=== PATIENT | male | born 1950 | race Caucasian/White ===

== ENCOUNTER 2016-11-14 09:50 | Day surgery (SDC) | payer MEDICARE, MEDICAID ==
[~2016-11-14] VITALS: Ht 170.2 cm; Wt 96.0 kg
[~2016-11-14 09:50] MED LIST: 0.9% Sodium Chloride 1,000 ML IV SCH; AMLO5TAB2 PO; ASPI-973 PO; CALC500T9 PO; DOCU250C2 PO; GABA-500 PO; OMEG500C PO; PSYL798P2 PO; SIMV40TA5 PO; Sodium Chloride LOK Flush 10 mL Syringe IV PRN; TRAM200T2 PO; fentaNYL-PF 50 mCg/mL 2 mL Inj IVPUSH PRN
[2016-11-14] MEDS ORDERED: fentaNYL-PF 50 mCg/mL 2 mL Inj IVPUSH ONE (09:51)
[2016-11-14 10:12] VITALS: BP 137/70; PULSE 74; RESP 16; O2SAT 97
[2016-11-14] MEDS ORDERED: LISI10TA PO (10:12)
[2016-11-14] MEDS ORDERED: MIRT15TA6 PO (10:12)
[2016-11-14] MEDS ORDERED: DULO60CA61 PO (10:12)
[2016-11-14] MEDS ORDERED: METF500T4 PO (10:12)
[2016-11-14 11:14] VITALS: BP 139/76; PULSE 77; RESP 16; O2SAT 94
[2016-11-14 11:24] VITALS: BP 118/71; PULSE 68; RESP 17; O2SAT 94
--- NOTE | 2016-11-15 06:27 | ENDO ---
[address] [address] ENDOSCOPY PROCEDURE PATIENT: TAI VILLALOBOS : 1950 MR#: [id number] ADMIT: 11/14/2016 JOB ID: [id number] DATE OF SERVICE: 11/14/2016 PROCEDURE PERFORMED: Colonoscopy. INDICATIONS: Screening. ASA CLASSIFICATION: The patient's ASA classification is II. MALLAMPATI SCORE: Mallampati score was 2. MEDICATIONS: 1. Versed 3 mg. 2. Fentanyl 75 mcg. INSTRUMENT USED: [id number]-H190AL. PREPARATION QUALITY: Fair. PROCEDURE DETAILS: After informed consent was obtained, the patient was brought into the GI suite, where he was placed on oxygen via nasal cannula and monitored with continuous pulse oximeter, telemetry, and blood pressure monitoring. A time-out was performed. Then, he was placed in the left lateral decubitus position and medications were administered for sedation. Digital rectal exam was performed which was unremarkable. The colonoscope was then inserted into the rectum and advanced under direct visualization to the cecum, which was identified by the presence of the ileocecal valve and appendiceal orifice. Once the cecum was reached, the colonoscope was withdrawn back into the rectum, as the mucosa and lumen were examined. In the rectum, retroflexion was performed. Following retroflexion, remaining air in the rectum was suctioned, and procedure was completed. FINDINGS: 1. In the cecum there was an approximately 8 mm flat polyp that was lifted using normal saline. Polyp had the appearance consistent with a serrated adenoma. Following lifting of the polyp, the polyp was then removed in a single piece with a hot snare. Just adjacent to this was an approximately 4 mm polyp that was removed with a cold snare. With the larger polyp following removal there was some mild oozing of blood and therefore, two hemoclips were placed for hemostasis. 2. In the ascending colon, there was an approximately 6-7 mm sessile polyp that was removed with a hot snare. 3. In the transverse colon, there was an approximately 7-8 mm flat polyp that was lifted using normal saline and then removed with a hot snare. The resulting mucosal defect was approximated with placement of three hemoclips. 4. In the distal rectum, there was an approximately 6 mm polyp that was sessile that was removed with a hot snare. The resulting mucosal defect was approximated with the placement of one hemoclip. 5. Scattered diverticula were seen throughout the left side of the colon. IMPRESSION: 1. Two cecal polyps. 2. Ascending polyp. 3. Transverse polyp. 4. Rectal polyp. RECOMMENDATIONS: 1. Avoid NSAIDs and anticoagulants for 72 hours. 2. Repeat colonoscopy in a year. COMPLICATIONS: None. ESTIMATED BLOOD LOSS: Less than 5 mL.
--- NOTE | 2016-11-17 14:43 | PATH ---
SURGICAL PATHOLOGY Attending Physician:Kirit Beth CASE STATUS: Signed Out PATIENT NAME: TAI VILLALOBOS PID: [id number] : 1950 DATE COLLECTED:11/14/2016 22:38 SPECIMEN: 1: Colon, Biopsy 2: Colon, Biopsy 3: Colon, Biopsy 4: Rectum, Biopsy CLINICAL HISTORY: 1). CECAL POLYPS X2 2). ASCENDING POLYP X1 3). TRANSVERSE POLYP X1 4). RECTAL POLYP X1 FINAL DIAGNOSIS: 1.CECAL POLYPS: TUBULAR ADENOMA, 1. SESSILE SERRATED ADENOMA, 1. 2.ASCENDING COLON POLYP: SESSILE SERRATED ADENOMA. 3.TRANSVERSE COLON POLYP: SESSILE SERRATED ADENOMA. 4.RECTAL POLYP: HYPERPLASTIC POLYP. ICD10 D12.0 D12.2 D12.3 K62.1 GROSS DESCRIPTION: The specimen is received in four formalin filled containers labeled with the patient's name. 1). The specimen is sublabeled "cecal polyp" and consists of 2 portions of tissue which aggregate to 0.6 x 0.6 x 0.5 CM. The smallest piece is entirely submitted. The largest piece is bisected and entirely submitted in the same cassette. 2). The specimen is sublabeled "ascending polyp" and consists of 3 portions of tissue which aggregate to 0.3 x 0.2 x 0.1 CM. The specimen is entirely submitted in cassette 2A. 3). The specimen is sublabeled "transverse polyp" and consists of a 0.9 x 0.8 x 0.5 CM portion of tissue. The specimen is trisected and totally submitted in cassettes 3A. 4). The specimen is sublabeled "rectal polyp" and consists of a 0.5 x 0.2 x 0.2 CM portion of tissue which is entirely submitted in cassette 4A. 11/14/2016 DAC MICRO DESCRIPTION: See diagnosis. ICD-9 CODES: CPT CODES: 1: 72757 2: 97041 3: 95932 4: 23952 Electronically Signed Out Sofia Araya MD [facility] [place] [address] Technical component performed at [facility], [facility] [address], [place], [address]
== END 2016-11-14 23:59 | disposition home or self-care (01) ==
LOC: END 09:50 → EDUNIT# 10:30 → END 23:59
PROVIDERS: ATTEND Internal Medicine Gastroenterology
DX: Z12.11 Encounter for screening for malignant neoplasm of colon (principal); D12.0 Benign neoplasm of cecum; D12.2 Benign neoplasm of ascending colon; D12.3 Benign neoplasm of transverse colon; K62.1 Rectal polyp; F33.41 Major depressive disorder, recurrent, in partial remission; E11.9 Type 2 diabetes mellitus without complications; I10 Essential (primary) hypertension; E78.5 Hyperlipidemia, unspecified; Z87.891 Personal history of nicotine dependence; K57.30 Diverticulosis of large intestine without perforation or abscess without bleeding
CPT/HCPCS: 45381; 45385; 99153; G0500; J2250; J3010; J7030

== ENCOUNTER 2016-11-20 22:13 | Observation (INO) | payer MEDICARE, MEDICAID ==
[~2016-11-20] VITALS: Ht 170.2 cm; Wt 99.2 kg
[~2016-11-20 22:13] MED LIST changes: -0.9% Sodium Chloride 1,000 ML IV SCH; +DULO60CA61 PO; +LISI10TA PO; +METF500T4 PO; +MIRT15TA6 PO; -Sodium Chloride LOK Flush 10 mL Syringe IV PRN; -TRAM200T2 PO; -fentaNYL-PF 50 mCg/mL 2 mL Inj IVPUSH PRN
[2016-11-20 22:17] VITALS: BP 131/79; PULSE 105; RESP 16; O2SAT 95
[2016-11-20] MEDS ORDERED: 0.9% Sodium Chloride 1,000 ML IV ONE (22:26)
--- NOTE | 2016-11-20 22:26 | ED.REPORT ---
HPI-GI Bleed Date of Service Nov 20, 2016 ED Provider: Johnathan Gastelum DO A 66 year old male with a history of diabetes and hyperlipidemia presents to the ED complaining of rectal bleeding. The pt had a colonoscopy six days ago with five polyps removed and clips placed. He was doing well following this and had a normal bowel movement this afternoon. After dinner at 21:00 this evening, the pt experienced abdominal pain and rectal bleeding. The blood was initially bright red but is now maroon, and the pt feels like he is only passing blood and not stool. The pt estimates that he has had eight such episodes tonight. The pt takes one 81 mg aspirin per day but denies alcohol use or overuse of medications such as Motrin. Nursing Notes Stated Complaint: BLOODY STOOL Chief Complaint: Male Abdominal Pain Nursing Notes Reviewed: Yes Allergies: Coded Allergies: No Known Allergies (Unverified , 11/14/16) Scheduled Amlodipine (Amlodipine) 5 Mg Tablet 5 MG PO DAILY Aspirin (Aspirin) 81 Mg Tablet 81 MG PO DAILY Duloxetine (Duloxetine) 60 Mg Capsule. 60 MG PO DAILY Gabapentin (Gabapentin) 100 Mg Capsule 100 MG PO BID Lisinopril (Lisinopril) 10 Mg Tablet 10 MG PO DAILY Metformin (Metformin) 500 Mg Tablet 1,000 MG PO BID Mirtazapine (Mirtazapine) 15 Mg Tablet 15 MG PO HS Simvastatin (Simvastatin) 40 Mg Tablet 40 MG PO HS Scheduled PRN Calcium Carbonate (Tums) 500 Mg Tab.chew 300 MG PO PRN PRN PRN For Pain Docusate Sodium (Docusate Sodium) 250 Mg Capsule 100 MG PO BID PRN PRN For Constipation Miscellaneous Medications [place]-3 Fatty Acids (Fish Oil) 500 Mg Capsule. 1,000 MG PO Psyllium Husk (with Sugar) (Metamucil Powder) 538 Gm Powder 538 GM PO General Time Seen by Provider: 22:26 Chief Complaint Chief Complaint: Other (Rectal bleeding) Hx Obtained From: Patient Arrived By: Walk-in Onset Occurred: 1 - 4 hours ago Symptom Duration: Intermittent Recent Healthcare: Recent doctor visit Similar Sx Previous: No Past Medical History Past Medical History depression Reports: Diabetes mellitus, Hyperlipidemia Past Surgical History shoulder inguinal hernia repair Smoking History Unknown if Ever Smoker Social History Alcohol Use: Denies alcohol use (quit 30 years ago) Other Social History: Good social support, Ambulatory Status Independent Review of Systems Review of Systems Note: rectal bleeding Constitutional: Denies: Fever Respiratory: Denies: Non-productive cough, Shortness of breath Cardiovascular: Denies: Chest pain GI: Reports: Abdominal pain Skin: Denies Rash Complete sys rev & neg: except as marked. Physical Exam Initial Vital Signs Vital Signs (First) Date Time Temp Pulse Resp B/P Pulse Ox O2 Delivery O2 Flow Rate FiO2 11/20/16 22:17 36.5 105 16 131/79 95 Room Air Initial VS: Reviewed General/Constitutional: Awake, Alert Respiratory / Chest: Atraumatic, Breath sounds NL, Breath sounds = bilat, No respiratory distress Cardiovascular: Heart rate NL, Regular rhythm, Heart sounds NL Abdomen: Atraumatic, Soft diffuse lower abdominal tenderness Rectum: exam deferred Head / Eyes: Atraumatic, Normocephalic, PERRL, EOMI ENT: Atraumatic, Airway patent, Mucous membranes moist Skin Skin: Atraumatic, Color NL, No rash, Warm, Dry Neurologic: Oriented X3, Speech NL, No motor deficits, No sensory deficits Neck: Atraumatic, No meningismus, Full range of motion Back: Atraumatic, Full range of motion Upper Extremity / MS: Atraumatic, Full range of motion Lower Extremity / Pelvis / MS: Atraumatic, Full range of motion Psychiatric: Affect NL, Mood NL Interpretation & Diagnostics Lab Results Interpretation Result Diagram: 11/21/16 0100 11/20/16 2320 Test 11/20/16 23:20 11/21/16 01:00 White Blood Count 10.9th/mm3 (3.8-10.1) Red Blood Count 4.17mil/mm3 (4.40-5.80) Mean Corpuscular Volume 92.8fL (81-100) Mean Corpuscular Hemoglobin 31.2pg (27.0-35.0) Mean Corpuscular Hemoglobin Concent 33.6% (32.0-37.0) Red Cell Distribution Width 12.5% (12.3-15.4) Platelet Count 299bil/L (150-400) Neutrophils (%) (Auto) 61.9% (40-74) Lymphocytes (%) (Auto) 25.8% (14-46) Monocytes (%) (Auto) 8.8% (4-12) Eosinophils (%) (Auto) 2.6% (0-5) Basophils (%) (Auto) 0.6% (0-3) Band Neutrophils % 0% (1-5) Prothrombin Time 10.3sec (8.1-12.5) Prothromb Time International Ratio 0.96ratio Sodium Level 141mEq/L (134-144) Potassium Level 4.4mEq/L (3.5-5.2) Chloride Level 102mEq/L (97-108) Carbon Dioxide Level 23mmol/L (18-29) Blood Urea Nitrogen 19mg/dL (8-27) Creatinine 0.91mg/dL (0.76-1.27) Estimat Glomerular Filtration Rate 89mL/min (>59) Glucose Level 120mg/dL (60-99) Calcium Level 9.0mg/dL (8.5-10.1) Magnesium Level 1.9mg/dL (1.6-2.6) Total Bilirubin 0.3mg/dL (0.0-1.2) Aspartate Amino Transf (AST/SGOT) 69U/L (0-50) Alanine Aminotransferase (ALT/SGPT) 44U/L (0-44) Alkaline Phosphatase 74U/L (25-160) Troponin T 0.010ug/L (0.0-0.011) Total Protein 6.9g/dL (6.4-8.4) Albumin 4.1g/dL (3.4-5.0) Hemoglobin 11.5g/dL (13.8-17.2) Hematocrit 35.9% (41.0-50.0) Pulse Oximetry Interpretation Pulse Oximetry Interpretation: 95% on room air Pulse Oximetry: Pulse Ox normal ECG Interpretation ECG Interpretation: sinus tachycardia with a rate of 102 otherwise normal Time: 22:45 Interpreted by: ED physician CBC Interpretation Hgb low (there was a drop in his hemoglobin.), Hgb normal Cardiac / Vascular Interp Cardiac markers normal Re-Eval/Medical Decision Med Decision/Clinical Course 66-year-old male presents with multiple bloody bowel movements. He is status post colonoscopy with snare polypectomy and metal clip placement. This was 5 days ago I believe. He has had 3 bloody bowel movements today. This prompted the ED evaluation. No presyncopal symptoms. No chest pain or shortness of breath. He is not on anticoagulants. On examination he was in no acute distress and he did not have pallor. He was orthostatic hypotensive and tachycardic. He had several bloody bowel movements with a total volume of roughly 350 mL. He was fluid resuscitated with normal saline and his vitals normalized. His H&H shows that it is trending down however his hemoglobin is still greater than 11 after the second liter and him passing 3 more bloody bowel movements. I have consulted with gastroenterology. The plan will be admitted to the ICU. Serial H&H. GoLYTELY prep. Plan for colonoscopy in the morning. If any change in his condition or stability then gastroenterology will be consulted for further recommendations. Source of Hx: Old records Re-Evaluation/Progress : Time of Eval: 00:01 Patient Status: Condition improved Re-Evaluation/Progress Note: Pt rechecked, who is stable. The diagnosis and plan for discharge is discussed. The pt understands and agrees with the plan. All questions are addressed at this time. Consultation #1: Referral / Consult Name: Rashel Lopez MD Call Returned at: 00:02 Layout Mechanic: Agrees with eval, Agrees with plan Note: Consulted with Dr. Lopez, gastroenterology, regarding pt's case. Dr. Lopez recommends bowel prep and admission. He also recommends no CT scan. Consultation #2: Referral / Consult Name: Brenda Alvarez DO Consulted With: Hospitalist Call Returned at: 00:42 Layout Mechanic: Agrees with eval, Agrees with plan, Accepts admit Note: Spoke with Dr. Alvarez, hospitalist, regarding pt's case. Dr. Alvarez agrees with the plan and agrees to admit the pt. Counseled Regarding: Diagnosis, Lab results, Need for admission Discharge & Departure Impression: Primary Impression: Lower GI bleed Disposition: ADMITTED TO HOSPITAL Discharge Condition All VS Reviewed: Yes Condition: Stable Referrals: Hayden Borrero MD (PCP) Crit Care Except Billable Proc Time Spent: 75-104 minutes Services Performed: Patient management by me, Time spent at bedside, Reviewing test results, Reviewing imaging, Discussing patient care, Documentation in record (fluid resuscitation. Gastroenterology consultation. Preparation for transfusion.) Scribe Attestation Portions of this note were transcribed by Saumya Villagran. I, Dr. Gastelum personally performed the history, physical exam and medical decision-making; I reviewed and confirmed the accuracy of the information in the transcribed note. Signed by: John Menard, 11/21/16 and 0045. copies to: Hayden Borrero MD, Todd P DO Nov 20, 2016 22:26 SAUMYA VILLAGRAN Nov 20, 2016 22:36
[2016-11-20] MEDS ORDERED: Pantoprazole 4 mg/mL 10 mL Inj IVPUSH ONE (22:30)
[2016-11-20] MEDS ORDERED: Pantoprazole Inj 80 MG, Pharmacy To Mix 1 EA in 0.9% Sodium Chloride 80 ML IV ONE ×2 (22:30)
[2016-11-20 23:35] LABS: BASOPHILS % (AUTO) 0.6 % (0-3); EOSINOPHILS % (AUTO) 2.6 % (0-5); MONOCYTES % (AUTO) 8.8 % (4-12); Mean Corpuscular Hemoglobin 31.2 pg (27.0-35.0); Mean Corpuscular Volume 92.8 fL (81-100); NEUTROPHILS % (AUTO) 61.9 % (40-74); Platelet Count 299 bil/L (150-400)
[2016-11-20 23:49] LABS: INR 0.96 ratio
[2016-11-21] VITALS (12 sets, daily range): BP systolic 86–130; BP diastolic 48–79; PULSE 82–118; RESP 16–24; O2SAT 92–100
[2016-11-21] MEDS ORDERED: PEG/Electrolytes 4,000 mL Solution PO ONE (00:10)
[2016-11-21 00:17] LABS: Magnesium 1.9 mg/dL (1.6-2.6); TROPONIN T 0.01 ug/L (0.0-0.011)
[2016-11-21] MEDS ORDERED: 0.9% Sodium Chloride 1,000 ML IV SCH (01:49)
[2016-11-21] MEDS ORDERED: Alum-Mag Hydrox-Simeth 30 mL Suspension PO PRN (01:50)
[2016-11-21] MEDS ORDERED: Ondansetron 2 mg/mL 2 mL Inj IVPUSH PRN ×2 (01:50→02:55)
[2016-11-21] MEDS ORDERED: 0.9% Sodium Chloride 1,000 ML IV ONE ×2 (01:55→10:53)
--- NOTE | 2016-11-21 01:57 | PCM.HPMED ---
Subjective Date of Service Nov 21, 2016 Primary Provider: Admitting Physician: Brenda Alvarez DO Primary Care Physician: Hayden Borrero MD Attending Physician: Brenda Alvarez DO Admit Status: From the Emergency Department Chief Complaint: Bright red blood per rectum History of Present Illness: This is a 66-year-old male with past medical history significant for diabetes mellitus type II, hyperlipidemia, and hypertension who presents for bright red blood per rectum. Patient states that on 11/14/2016 he had a routine colonoscopy at which time 5 polyps were removed and clips were placed. Since that time he had been doing well with regular bowel movements until 9 PM this evening when he began to have rectal bleeding. The patient states that the blood was bright red but later became a darker, maroon color. The patient states he has had about 10 episodes of passing blood per rectum. Associated symptoms include some left lower quadrant abdominal pain that is described as achy and constant as well as a feeling of lightheadedness. He denies any NSAID use. He does take an aspirin 81 mg per day. He denies any history of GI bleeding. In the emergency department initial vital signs were temperature 36.5 Celsius, pulse 105, respiratory rate 16, blood pressure 131/79, satting at 95% on room air. WBC 10.9, platelets 299. Initial hemoglobin 13.0 with repeat hemoglobin 11.5. Initial hematocrit 38.7 with repeat hematocrit 35.9. CMP showed a glucose of 120, ALT 44, AST 69. Troponin 0.010. Magnesium 1.9. Urinalysis is pending. The emergency room physician contacted Dr. Lopez of gastroenterology who will see patient in the morning. Dr. Lopez also recommended bowel prep. Review of Systems: A comprehensive review of systems was conducted with the patient and found to be negative except as above in the History of Present Illness. Allergies Coded Allergies: No Known Allergies (Unverified , 11/14/16) Home Medications amlodipine 5 mg tablet take 1 tablet by oral route every day aspirin 81 mg tablet,delayed release take 1 tablet by oral route every day atorvastatin 20 mg tablet Take 1/2 po QxoP3zol then 1 po QPM blood-glucose meter USE to check BS daily duloxetine 60 mg capsule,delayed release take 1 capsule po QAM gabapentin 800 mg tablet take 1 tablet by oral route 3 times every day lisinopril 10 mg tablet take 1 tablet by oral route every day metformin 500 mg tablet take 1 tablet by oral route 2 times every day with morning and evening meals mirtazapine 15 mg tablet Take 2 po QHSX 4wks then 1 po QHSX 4wks then stop PMH Diabetes mellitus type II Hypertension Hyperlipidemia Depression Vitamin D deficiency Surgical History Left inguinal hernia repair 2013 Shoulder surgery 1996 Sinus surgery in 2002 Family History Father of heart disease. Mother of emphysema. Social History Hx Alcohol Use: No (QUIT 30 YEARS AGO) Hx Substance Use: No Hx Tobacco Use: No (quit in 2008) Smoking Status: Unknown if Ever Smoker Exam Vital Signs Vital Sign - Last Date Time Temp Pulse Resp B/P Pulse Ox O2 Delivery O2 Flow Rate FiO2 11/21/16 00:15 118 92/52 97 Room Air 11/20/16 22:17 36.5 16 Intake and Output 11/20/16 11/20/16 11/21/16 Cumulative From/Thru 15:00 23:00 07:00 11/20/16 22:17 - 11/20/16 23:21 Intake Total 999 ml 999 ml Balance 999 ml 999 ml Intake IV Total 999 ml 999 ml Exam General: No acute distress, somewhat pale, well-developed, well-nourished, appropriately interactive HEENT: Normocephalic, atraumatic. External ears without defect. Pupils equal, round, and reactive to light and accommodation. Anicteric sclerae, moist conjunctivae, and no lid lag. Oropharynx free of erythema and cobble stoning with moist mucosa. Neck: Supple with full range of motion. No jugular venous distension. No bruits. No lymphadenopathy or thyromegaly. Cardiovascular: Regular rate and rhythm with no murmurs, rubs, or gallops appreciated Pulmonary: Clear to auscultation bilaterally with no crackles, wheezes, or rhonchi. Normal respiratory effort with no use of accessory muscles. Abdomen: Bowel tones present. Soft, mild tenderness to palpation of left lower quadrant with no rebound or guarding, nondistended. No hepatosplenomegaly or masses appreciated. Extremities: No clubbing, cyanosis, edema, or lymphadenopathy appreciated. Skin: Normal temperature, turgor, and texture; no rash, ulcers, or subcutaneous nodules appreciated. Neurological: Cranial nerves grossly intact. Normal muscle strength, tone, and bulk. Reflexes, coordination, and sensory function within normal limits. No known gait impairment. Psychiatric: Normal mood and affect. Alert and oriented to person, place, and time. Lab and Diagnostics Result Diagram: 11/21/16 0100 11/20/16 3870 Assessment & Plan This is a 66-year-old male who has a history significant for hypertension, hyperlipidemia, and diabetes mellitus type II who presents today for bright red blood per rectum starting this evening at 9 PM after routine colonoscopy on 07/2016. Bright red blood per rectum, present on admission, ongoing: -Likely secondary to clip displacement from polyp removal.. -Dr. Lopez of gastroenterology has been contacted and will see patient in morning. -2 units PRBCs on hold. -We will check hemoglobin and hematocrit every 2 hours x3 then will check serial less frequent if H&H stabilizes -Patient will be cc status with frequent vital checks. -Patient has bowel prep. Hypertension, present on admission: -We will hold antihypertensive medications Diabetes mellitus type II, present on admission, ongoing: -Admit glucose was 120. Hemoglobin A1c on 10/06/2016 was 10.1 -We will add medium dose correctional Humalog. -Continue metformin. Hyperlipidemia, present on admission, ongoing: -Continue atorvastatin. Depression, present on admission: -Continue duloxetine, mirtazapine. Hold DVT prophylaxis due to GI bleed. Patient is admitted under inpatient status with expected length of stay greater than 2 midnights due to severity of presenting symptoms, risk of adverse event, and complexity of treatment plan. Pain Evaluation: Adequate Pain Control Resuscitation Status: CPR: Attempt Resuscitation Attending Statement The patient was seen and examined together with house staff on 11/21/2016 and I agree with the history, exam and plan as outlined in the note above. Harry Adames DO Nov 21, 2016 01:57 Brenda Alvarez DO Nov 21, 2016 02:51
[2016-11-21] MEDS ORDERED: Glucose 40% Oral Gel 15 Gm Tube PO PRN (02:25)
[2016-11-21] MEDS ORDERED: Dextrose 10% 250 ML IV PRN (02:30)
[2016-11-21] MEDS: 0.9% Sodium Chloride 1,000 ML IV SCH ×4 (02:55→23:33)
[2016-11-21] MEDS: Acetaminophen IV 1,000 MG in IV Premix 1 EACH IV PRN ×2 (03:07→12:28)
[2016-11-21] MEDS ORDERED: Pantoprazole Inj 80 MG in 0.9% Sodium Chloride 80 ML IV SCH (03:45)
[2016-11-21 04:09] LABS: APPEARANCE,URINE CLEAR (CLEAR,HAZY); COLOR,URINE DARK YELLOW (YELLOW); OCCULT BLOOD,URINE NEGATIVE (NEGATIVE); UROBILINOGEN,URINE NORMAL (NORMAL)
--- NOTE | 2016-11-21 04:25 | NUR ---
Admit Note Admitted to CCU 2019 from ER at 0205. Transfered independently from [facility] to bed. Protonix gtt continued at 10ml/h from ER. NS started at 100ml/h. Increased to 500ml/h after getting up to bedside commode with associated drop in blood pressure and MAP <65. Stooled x2 for total 500ml maroon stool with clots. States generally feeling terrible. Zofran given x1 for complaints of nausea. Iv Tylenol given once for complaint of severe headache with resolution. Spouse asleep at bedside after admit.
[2016-11-21] MEDS: Insulin LISPRO 300 Unit/3 mL Inj SUBQ SCH ×4 (08:31→22:00)
[2016-11-21] MEDS ORDERED: Pantoprazole Inj 80 MG in 0.9% Sodium Chloride-Pha MIX 80 ML IV SCH (09:00)
--- NOTE | 2016-11-21 09:09 | NUR ---
Syncopy..Pt got up to commode on own and passed more b Addendum: 11/21/16 at 0920 by MAURA FAGAN RN Above note not completed.. Pt passed more bright red stool with clots and preceded to have a syncopal episode requiring 4 staff lift to return to bed. Pt was extremely pale, diaphoretic and minimally responsive. Placed in trendelenberg and IVF increased to bolus. Pt returned to baseline within 5 minutes and B/P was noted to be 103/55. Pt is having 5/10 abdominal pain noted with colyte prep and states he just feels terrible due to the pain and is unable to take any further prep. Dr Qureshi updated.
--- NOTE | 2016-11-21 09:25 | NUR ---
Social Work: Initial Assessment D: Per EMR review, pt is a 66 year old male admitted for Lower GI bleed. Pt is [facility] wier with [facility] supplement; pt has no LTC insurance or VA benefits. PCP is Richard Borrero MD. NOK Is Karon Ni, , . Advanced direcitve info provided to pt and . No readmit score entered. STRIP MACHINE OPERATOR met with pt and at bedside. Sw role explained. See initial assessment. Pt lives in a single story home in [place]; pt states that this is a sober living home. Pt's lives nearby in [place]. Pt uses a cane for ambulation and has a ramp to enter his home. Pt states that he has never had HH or skilled rehab. 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 Pt and anticipate pt will discharge home via POV once medically stable A: Pt who is I at baseline. P: Evolving; STRIP MACHINE OPERATOR to continue to follow pt's clinical course. Anticipate pt to discharge home via POV once medically stable. MOON Kearns Addendum: 11/21/16 at 1007 by DELFINO HARRIS Amended: Links added.
[2016-11-21] MEDS ORDERED: fentaNYL-PF 50 mCg/mL 2 mL Inj ONE (09:50)
--- NOTE | 2016-11-21 11:03 | PCM.PNMED ---
Subjective Date of Service Nov 21, 2016 Subjective Mr. Ni was slightly somnolent and tremulous upon initial examination this AM, he had recently had a near syncopal episode while on the commode prior to a bloody BM. He otherwise denies chest pain and SOB. He continues to report some mild RUQ abdominal pain and loose BMs. Comprehensive ROS negative except as listed above. Exam Vital Signs Vital Sign - Last Date Time Temp Pulse Resp B/P Pulse Ox O2 Delivery O2 Flow Rate FiO2 11/21/16 10:29 89 16 86/48 11/21/16 10:14 36.4 11/21/16 07:35 100 11/21/16 07:35 Supplement Oxygen Intake and Output 11/20/16 11/20/16 11/21/16 Cumulative From/Thru 15:00 23:00 07:00 11/20/16 22:17 - 11/21/16 05:42 Intake Total 3848 ml 3848 ml Output Total 1300 ml 1300 ml Balance 2548 ml 2548 ml Intake Oral 1800 ml 1800 ml IV Total 2048 ml 2048 ml Output Urine Total 50 ml 50 ml Stool Total 1250 ml 1250 ml Exam Gen: A/O x3 mildly somnolent and tremulous man in mild acute distress secondary to anxiety and fatigue Neck: Supple, non tender, Full ROM, no JVD HEENT: PERRL, EOMI, no scleral icterus, no conjunctival pallor CV: RRR, no murmurs rubs or gallops Resp: Lungs CTA BL, no wheezing rales or rhonchi Abd: Mild tenderness to palpation in LLQ, no guarding or rebound, no organomegaly Extr: No cyanosis clubbing or edema Neuro: CN 2-12 grossly intact, no focal neurologic deficit Psych: Fully oriented slightly anxious gentleman IVs and Medications IV Fluids NS @ 100 ml/hr 100 ml delivered with IV meds Medications Reviewed: Medications were reviewed in detail Lab and Diagnostics Item Value Date Time Hemoglobin 8.8 g/dL L 11/21/16719 Hematocrit 27.4 % L 11/21/16719 Result Diagram: 11/21/16 0900 11/20/16 4190 Assessment & Plan This is a 66-year-old male who has a history significant for hypertension, hyperlipidemia, and diabetes mellitus type II who presents today for bright red blood per rectum starting this evening at 9 PM after routine colonoscopy on 07/2016. Patient has been taken to endoscopy for colonoscopic interrogation which revealed an active cecal bleed which was subsequently cauterized. GI recommends transfusing an additional unit of blood, maintaining the protonix drip, and placing the patient on a clear liquid diet with further tracking of H/ H over the evening. Bright red blood per rectum, present on admission, ongoing: -Likely secondary to clip displacement from polyp removal.. -Dr. Lopez will perform colonoscopy . -2 units PRBCs on hold. -We will check hemoglobin and hematocrit every 2 hours x3 then will check serial less frequent if H&H stabilizes -Patient will be cc status with frequent vital checks. -As above patient had active cecal bleed which was cauterized -Clear liquid diet advancing as tolerated tomorrow Hypertension, present on admission: -We will hold antihypertensive medications Diabetes mellitus type II, present on admission, ongoing: -Admit glucose was 120. Hemoglobin A1c on 10/06/2016 was 10.1 -We will add medium dose correctional Humalog. -Will transition back to home dosing once PO intake re-established -Continue metformin. Hyperlipidemia, present on admission, ongoing: -Continue atorvastatin. Depression, present on admission: -Continue duloxetine, mirtazapine. Hold DVT prophylaxis due to GI bleed. Disposition: Patient will be observed for a further 24 hours to ensure that his H/H do not continue to precipitously drop, anticipate DC home tomorrow. Pain Evaluation: Adequate Pain Control GI Prophylaxis: Proton Pump Inhibitor Resuscitation Status: CPR: Attempt Resuscitation Attending Statement The patient was seen and examined together with Dr. Aguilar on 11/21/16 and I agree with the history, exam and plan as outlined in the note above. Ryley Aguilar DO Nov 21, 2016 10:38 Marisa Ortiz DO Nov 23, 2016 18:29
[2016-11-21] MEDS ORDERED: Phenylephrine/NS-PF 100 mCg/mL 5 mL Syringe IVPUSH ONE (13:17)
[2016-11-21] MEDS ORDERED: EPINEPHrine 0.1 mg/mL 10 mL Syringe ONE (13:17)
[2016-11-21] MEDS ORDERED: Propofol 10,000 mCg/mL 20 mL Inj ONE (13:17)
[2016-11-21] MEDS ORDERED: Ketamine 10 mg/mL 20 mL Inj ONE (13:17)
[2016-11-21] MEDS ORDERED: GABA800T2 PO (14:26)
[2016-11-21] MEDS ORDERED: METF1000 PO (14:28)
[2016-11-21] MEDS ORDERED: MULT1CAP33 PO (14:28)
[2016-11-21] MEDS ORDERED: CYAN50002 SL (14:28)
[2016-11-21] MEDS ORDERED: CHOL500011 PO (14:28)
--- NOTE | 2016-11-21 18:00 | NUR ---
Endo.. Pt taken to endoscopy for lower GI scope. Was given 2 units RBC during procedure and completed these without reactions. Returned to CCU at 1130 in stable condition. VSS remained stable and pt was able to be up in the chair. Postural VS done prior to transferring to the chair and these remained stable. Dr Qureshi updated and allowed pt to be on telemetry to amb to BR. He denies any dizziness and states he feels so much better. Is voiding large amts of clear yellow urine. here and updated. Noted to find her letting the pt drink her strawberry milkshake. Reiterated the importance of maintaining his clear liquid diet.
[2016-11-22 00:16] VITALS: BP 140/67; PULSE 96; RESP 20; O2SAT 96
[2016-11-22 03:33] VITALS: BP 136/59; PULSE 81; RESP 22; O2SAT 97
[2016-11-22 03:54] LABS: BASOPHILS % (AUTO) 0.4 % (0-3); EOSINOPHILS % (AUTO) 3.3 % (0-5); MONOCYTES % (AUTO) 8.1 % (4-12); Mean Corpuscular Hemoglobin 29.9 pg (27.0-35.0); Mean Corpuscular Volume 90.7 fL (81-100); NEUTROPHILS % (AUTO) 53.3 % (40-74); Platelet Count 188 bil/L (150-400)
[2016-11-22 04:15] LABS: INR 1.25 ratio
[2016-11-22 04:25] LABS: Magnesium 1.9 mg/dL (1.6-2.6); Phosphorus 2.4 mg/dL (2.5-4.9)
--- NOTE | 2016-11-22 05:18 | ENDO ---
[address] [address] ENDOSCOPY PROCEDURE PATIENT: TAI VILLALOBOS : 1950 MR#: [id number] ADMIT: 11/21/2016 JOB ID: [id number] DATE: PROCEDURE: Colonoscopy. INDICATION: Rectal bleeding. The patient is a 66-year-old gentleman who underwent a colonoscopy for screening back on November 14, 2016, and yesterday evening, approximately 8 o'clock, began having bright red blood per rectum. He presented to the emergency department, where he was noted to have a normal hemoglobin and hematocrit. However, was slightly tachycardic. However, by approximately 8 o'clock this morning, his hemoglobin had dropped significantly. MEDICATIONS: Please see Dr. Kenny Mares's anesthesia report for details regarding ASA classification, Mallampati score, and medications. INSTRUMENT USED: PCF-H180AL. PREPARATION QUALITY: Fair. PROCEDURE DETAILS: After informed consent was obtained, the patient was brought into the GI suite, where he was placed on oxygen via nasal cannula, and monitored with continuous pulse oximeter, telemetry, and blood pressure monitoring. A time-out was performed. Then he was placed in a left lateral decubitus position and medications were administered for sedation. INCOMPLETE DICTATION: Dictation ends here.
--- NOTE | 2016-11-22 05:38 | ENDO ---
[address] [address] ENDOSCOPY PROCEDURE PATIENT: TAI VILLALOBOS : 1950 MR#: [id number] ADMIT: 11/21/2016 JOB ID: [id number] DATE OF SERVICE: 11/21/2016 PROCEDURE PERFORMED: Colonoscopy. INDICATION: Rectal bleeding. The patient is a 66-year-old gentleman who underwent a screening colonoscopy on November 14, 2016, and had several polyps removed that required saline lift and then hot snare polypectomy, followed by hemoclip placement. He was apparently well until yesterday evening at approximately 8 o'clock when he began having painless rectal bleeding. He presented to the emergency department, where he was noted to be slightly tachycardiac. However, with a normal hemoglobin and hematocrit. He was admitted and over the course of his hospital stay has had decreasing hemoglobin and hematocrit with ongoing bright red blood per rectum. Therefore, colonoscopy is being performed today. ANESTHESIA: Please see Dr. Kenny Mares's anesthesia report for details regarding sedation. INSTRUMENT USED: PCF-H180AL. PREPARATION QUALITY: Fair. PROCEDURE DETAILS: After informed consent was obtained, the patient was brought into the GI suite, where he was placed on oxygen via nasal cannula and monitored with continuous pulse oximeter, telemetry and blood pressure monitoring. A time-out was performed. Then, he was placed in the left lateral decubitus position and medications were administered for sedation. Digital rectal exam was performed which revealed bright red blood per rectum, as well as dark maroon clot. The colonoscope was then inserted into the rectum and advanced under direct visualization to the cecum, which was identified by the presence of the ileocecal valve and appendiceal orifice. In the periappendiceal area there was blood pulsating from a visible vessel. The visible vessel appeared to be in an ulcer base. Next, using an injection needle, injected the visible vessel, as well as the surrounding mucosa, with epinephrine 1:10,000 dilution. Following this, there was blanching of surrounding mucosa, as well as there was no further bleeding from the visible vessel. Next, I elected to place three hemoclips to approximate the ulcer margins. The site was then observed for several minutes. Irrigation was performed of the area. No further bleeding was seen. Next, the colonoscope was withdrawn slowly as I examined the mucosa. In the transverse colon I did see two hemoclips that were placed at a polypectomy site from the patient's last colonoscopy. There was no bleeding at this site. The site was irrigated. However, previously, we had placed three hemoclips. Only two were present. Another hemoclip was seen floating in the area. A few scattered diverticula were seen in the left side of the colon. In the distal rectum there was one hemoclip that was previously placed which was still in place. No bleeding was seen from this site. The site was copiously irrigated with water. There was old clot seen throughout the colon that we attempted to suction, some of which we were able to and others were too large to come through the suction channel. Retroflexion was performed in the rectum which revealed the hemoclip in the distal rectum but otherwise unremarkable view. IMPRESSION: 1. Ulcer with visible vessel in the periappendiceal area treated with a combination of epinephrine and hemoclips. 2. Two hemoclips seen in the transverse colon. One hemoclip that was free floating in the transverse colon. 3. Hemoclip seen in the distal rectum that was in place. 4. A few scattered diverticula were seen throughout the left side of the colon. 5. Scattered old blood seen throughout the colon. RECOMMENDATION: 1. Continue to follow H and H closely. 2. May have a clear liquid diet. 3. Can stop Protonix drip. 4. Avoid any NSAIDs or anticoagulants for 72 hours. COMPLICATIONS: None. ESTIMATED VISUALIZED BLOOD LOSS DURING TIMING OF PROCEDURE: Approximately 50 mL to 100.
[2016-11-22 05:45] VITALS: PULSE 79
--- NOTE | 2016-11-22 05:59 | NUR ---
GI Assumed care of pt around 2129 last night. Vitals stable throughout night, H&H had slight drop during last night's draw but numbers did not drop this morning, see labs. 2 attempts made to draw from PIVs but not successful, pt back on lab draw list. Pt denied any stools last night. No c/o N/V, tolerating clear liquids. No c/o pain overnight. 2L NC applied d/t desats while pt slept.
--- NOTE | 2016-11-22 06:25 | CONS ---
[address] [address] CONSULTATION REPORT PATIENT: TAI VILLALOBOS : 1950 MR#: [id number] ADMIT: 11/21/2016 JOB ID: [id number] DATE OF SERVICE: 11/21/2016 REASON FOR CONSULTATION: The patient underwent colonoscopy one week ago for screening and now presenting with rectal bleeding. PHYSICIAN REQUESTING CONSULTATION: Harry Adames DO. HISTORY OF PRESENTING ILLNESS: The patient is a 66-year-old gentleman whose past medical history is significant for type 2 diabetes, hyperlipidemia and hypertension who had a screening colonoscopy on November 14, 2016. On that colonoscopy he had approximately five polyps that were removed with saline injection of flat polys and removal with a hot snare, followed by hot snare removal alone. He states that following the colonoscopy he was well and had no complaints of abdominal pain, nausea, vomiting, or rectal bleeding. He states that he had been regular formed brown stool up until yesterday evening at approximately 8 p.m. At 8 p.m. yesterday he the urge to defecate and passed large amounts of bright red blood. This was associated with some mild, he states, dizziness. He had several more episodes and therefore went to the emergency department. In the emergency department he was slightly tachycardic at a heart rate of 105 but otherwise the remainder of his vital signs were stable. His initial hemoglobin was approximately 13 with a repeat in the emergency department showing a drop to 11.5, and his hematocrit also dropped from 38.7 on admission to a repeat of 35.5. My partner, Dr. Lopez, was consulted yesterday evening who recommended a bowel prep for colonoscopy. The patient denies taking any large amounts of NSAIDs or any other anticoagulants. He has no history of rectal bleeding in the past. PAST MEDICAL HISTORY: Significant for type 2 diabetes, hypertension, hyperlipidemia, depression, vitamin D deficiency. PAST SURGICAL HISTORY: Includes left inguinal hernia repair, shoulder surgery and sinus surgery. FAMILY HISTORY: Significant for his father who secondary to heart disease and his brother who from emphysema. SOCIAL HISTORY: He has a remote history of alcohol use but quit 30 years ago, and history of tobacco use which he quit in 2008. HOME MEDICATIONS: Include amlodipine, aspirin 81 mg, atorvastatin, duloxetine, gabapentin, lisinopril, metformin and mirtazapine. ALLERGIES: He has no known drug allergies. REVIEW OF SYSTEMS: A 10-point review of systems is negative except as mentioned in the HPI. PHYSICAL EXAMINATION: Afebrile. His pulse is 89. His blood pressure is 86/48, respiratory rate is 16, O2 saturation is 97% on room air oxygen. Generally, he appears pale. He is oriented to person, place and time. Answers questions appropriately. HEENT: Pallor present. Oropharynx clear. Respiratory exam clear to auscultation bilaterally. Cardiovascular exam: S1, S2 heard. Abdomen is soft, nontender, nondistended, without hepatosplenomegaly. Extremities with trace edema. LABORATORY DATA: Reveals a normal BMP except his glucose is slightly elevated at 120. LFT are essentially unremarkable except for a minimally elevated AST. PT and INR are normal. His hemoglobin repeat shows a hemoglobin of 7.6, with a hematocrit of 23.7. ASSESSMENT AND PLAN: 1. A 66-year-old gentleman who underwent routine colon cancer screening approximately one week ago who had several polyps removed with hot snare and also had hemoclip placement, presenting with painless rectal bleeding. I believe what we are most likely dealing with is a post polypectomy bleed. However, also in the differential we need to consider diverticular disease versus arteriovenous malformation. Less likely, an upper gastrointestinal source. I did discuss with the patient pursuing urgent colonoscopy, for which he was agreeable. If colonoscopy does not reveal a source of bleeding, discussed with him that possible upper endoscopy may be required which he was also agreeable with. I would recommend transfusing packed red blood cells, as he is mildly hypotensive. I will continue with aggressive hydration with IV fluids. Continue to monitor ins and outs. Anesthesiology has been consulted for assistance with sedation. We will plan for urgent endoscopy today. 2. Minimally elevated liver function tests. I would recommend checking a hepatitis panel. Suspect this likely represents nonalcoholic fatty liver disease, as he has no risk factors for viral hepatitis. He has no known history of chronic liver disease or a family history of liver disease. Thank you for allowing me to participate in the patient's care. If you have any further questions, please do not hesitate to contact me. TAMMY
[2016-11-22] MEDS: 0.9% Sodium Chloride 1,000 ML IV SCH ×2 (06:29→11:37)
[2016-11-22] MEDS ORDERED: Calcium Carbonate (Oyster Shell) 500 mg Tablet PO ONE (07:15)
[2016-11-22 08:16] VITALS: BP 110/59; PULSE 87; RESP 16; O2SAT 98
[2016-11-22] MEDS: Insulin LISPRO 300 Unit/3 mL Inj SUBQ SCH (09:25)
--- NOTE | 2016-11-22 10:28 | PROG NOTE ---
[address] [address] PROGRESS NOTE PATIENT: TAI VILLALOBOS : 1950 MR#: [id number] ADMIT: 11/21/2016 JOB ID: [id number] DATE: 11/22/2016 PROGRESS NOTE: Dr. Landis's colonoscopy and intervention was reviewed. The patient has been stable since transfusion. Immediately following colonoscopy, he felt much better. His last bowel movement this morning did not demonstrate any significant amount of blood in it. He has been on a clear liquid since his intervention yesterday. OBJECTIVE: Blood pressure 110/59, pulse 87, breathing 16, temperature 36.7, 98% on room air. The patient was in no distress. Alert, oriented, appropriate, cooperative, conversational. LABORATORY DATA: Hemoglobin 8.7 this morning at 3:20 a.m. Yesterday evening at around 11:30 it was 8.6. ASSESSMENT AND RECOMMENDATIONS: A 66-year-old male with large volume post polypectomy bleeding requiring epinephrine injection and Endoclip deployment for hemostasis. Clinically, this appears to be quite successful. There is no evidence of any ongoing active hemorrhage. I think it would be reasonable to advance the patient's diet this morning if he continues to do well with demonstration of stable H and H by around noon or so, then I do not see why he could not be discharged home. I have advised the patient to avoid taking his aspirin for the next 7-10 days. This is a no charge visit. Today is the sabbath. Please do not submit a physician charge for this particular note.
--- NOTE | 2016-11-22 11:00 | PCM.DIMED ---
Ryley Aguilar DO 11/22/16 1058: Discharge Instructions Date of Service Nov 22, 2016 Dates of Hospitalization Nov 21, 2016 at 01:16 Discharge Diagnosis Discharge Diagnosis Colonic laceration: It appears as if you had a bleeding wound in your intestine that we were able to fix here in the hospital. Your lab numbers have been stable since the procedure, and you appear to be doing much better. Please avoid taking your Aspirin for he next 10 days Hypertension: Continue to take your blood pressure medications as directed. Diabetes mellitus type II: Continue to take your diabetes medication and stay disciplined with your diet Hyperlipidemia: Continue to take your cholesterol medication as directed, stay disciplined with your diet as above. Medication Instructions Additional med instructions Do not take your Aspirin for another 10 days, resume on 12/02/16 Test Results Test Results You underwent a colonoscopy during your stay with us, it revealed an actively bleeding spot on your intestine that they were able to fix during the procedure. Diet Discharge Diet: Diabetic Activity Discharge Activity: Limited until seen by PCP (Balance rest and activity, try not to overextert yourself.) Call your provider Call your provider for: Fever or Chills, Shortness of breath, Bleeding, Chest pain, Vomitting, Excessive diarrhea, Weakness (unilateral) Patient Instructions Patient Instructions Call your primary care provider or return to the hospital if you have any further bleeding from your rectum. Follow-up plan Follow up with your primary care provider Dr. Borrero within 2 weeks. Follow-up Provider: Hayden Borrero MD Follow-up with PCP in: 2 weeks Marisa Ortiz DO 11/22/16 1229: Discharge Instructions Attending's Statement The patient was seen and examined together with Dr. Aguilar on 11/22/16 and I agree with the history, exam and plan as outlined in the note above. Ryley Aguilar DO Nov 22, 2016 10:58 Marisa Ortiz DO Nov 22, 2016 12:29
--- NOTE | 2016-11-22 11:39 | NUR ---
Social Work Note: Discharge Data& Assessment: Per pt is medically ready to discharge home via POV. jey Ni is a 66 year old male admitted on 11/21/2016 for lower GI bleed. Per pt is medically improved and ready to discharge. SW met with pt at bedside to confirm discharge plan and assess for any unmet needs. Pt confirmed he is ambulating at baseline and confirmed plan to discharge home. Pt friend will be transporting him home today. Pt denies any other needs. No other discharge needs identified. Plan: Per pt is medically ready to discharge home via POV. Pt friend will be transporting him home today. Pt denies any other needs. No other discharge needs identified. MOON Brown
[2016-11-22 12:16] VITALS: BP 117/62; PULSE 89; RESP 22; O2SAT 97
--- NOTE | 2016-11-22 13:22 | NUR ---
Discharge Pt discharged home today at 13:20. Pt off floor via ambulation with all of his belongings in the company of his and the nurse to a private vehicle. Pt was provided with education materials on GI bleed, follow up instructions, and instructions to stop taking aspirin for the next 10 days. All questions answered and pt voices understanding.
--- NOTE | 2016-11-22 16:44 | PCM.DC.MED ---
Discharge Summary Date of Service Nov 22, 2016 Dates of Hospitalization Date of Hospital Admission Nov 21, 2016 at 01:16 Date of Discharge: Nov 22, 2016 Providers: Admitting Physician: Brenda Alvarez DO Primary Care Physician: Hayden Borrero MD Attending Physician: Brenda Alvarez DO Diagnosis at Time of Discharge Diagnosis at Time of Discharge Colonic laceration: It appears as if you had a bleeding wound in your intestine that we were able to fix here in the hospital. Your lab numbers have been stable since the procedure, and you appear to be doing much better. Please avoid taking your Aspirin for he next 10 days Hypertension: Continue to take your blood pressure medications as directed. Diabetes mellitus type II: Continue to take your diabetes medication and stay disciplined with your diet Hyperlipidemia: Continue to take your cholesterol medication as directed, stay disciplined with your diet as above. Brief History Taken from History and Physical composed by Dr. Adames on 11/21/16 This is a 66-year-old male with past medical history significant for diabetes mellitus type II, hyperlipidemia, and hypertension who presents for bright red blood per rectum. Patient states that on 11/14/2016 he had a routine colonoscopy at which time 5 polyps were removed and clips were placed. Since that time he had been doing well with regular bowel movements until 9 PM this evening when he began to have rectal bleeding. The patient states that the blood was bright red but later became a darker, maroon color. The patient states he has had about 10 episodes of passing blood per rectum. Associated symptoms include some left lower quadrant abdominal pain that is described as achy and constant as well as a feeling of lightheadedness. He denies any NSAID use. He does take an aspirin 81 mg per day. He denies any history of GI bleeding. In the emergency department initial vital signs were temperature 36.5 Celsius, pulse 105, respiratory rate 16, blood pressure 131/79, satting at 95% on room air. WBC 10.9, platelets 299. Initial hemoglobin 13.0 with repeat hemoglobin 11.5. Initial hematocrit 38.7 with repeat hematocrit 35.9. CMP showed a glucose of 120, ALT 44, AST 69. Troponin 0.010. Magnesium 1.9. Urinalysis is pending. The emergency room physician contacted Dr. Lopez of gastroenterology who will see patient in the morning. Dr. oLpez also recommended bowel prep. Hospital Course This is a 66-year-old male who has a history significant for hypertension, hyperlipidemia, and diabetes mellitus type II who presents today for bright red blood per rectum starting this evening at 9 PM after routine colonoscopy on 07/2016. Patient has been taken to endoscopy for colonoscopic interrogation which revealed an active cecal bleed which was subsequently cauterized. GI recommends transfusing an additional unit of blood, maintaining the protonix drip, and placing the patient on a clear liquid diet with further tracking of H/ H over the evening. Patient made excellent progress following the procedure and was able to be transitioned to a full diet prior to discharge without difficulty and H&H remained stable. Patient is being discharged home in stable condition. For full hospital course see below: Bright red blood per rectum, present on admission, ongoing: -Likely secondary to clip displacement from polyp removal.. -Dr. Lopez performed colonoscopy . -2 units PRBCs transfused over the course of his stay -H/H stable following procedure -As above patient had active cecal bleed which was cauterized -Clear liquid diet advanced to general prior to discharge Hypertension, present on admission: -Held antihypertensive medications due to hypotension Diabetes mellitus type II, present on admission, ongoing: -Admit glucose was 120. Hemoglobin A1c on 10/06/2016 was 10.1 -We will add medium dose correctional Humalog. -Will transition back to home dosing once PO intake re-established -Continued metformin. Hyperlipidemia, present on admission, ongoing: -Continued atorvastatin. Depression, present on admission: -Continued duloxetine, mirtazapine. Held DVT prophylaxis due to GI bleed. Exam Vital Signs (Last) Date Time Temp Pulse Resp B/P Pulse Ox O2 Delivery O2 Flow Rate FiO2 11/22/16 12:16 36.5 89 22 117/62 97 Non-Rebreather Exam Gen: A/O x3 pleasant cooperative gentleman in NAD Neck: Supple, non tender, Full ROM, no JVD HEENT: PERRL, EOMI, no scleral icterus, no conjunctival pallor CV: RRR, no murmurs rubs or gallops Resp: Lungs CTA BL, no wheezing rales or rhonchi Abd: Mild tenderness to palpation in LLQ, no guarding or rebound, no organomegaly Extr: No cyanosis clubbing or edema Neuro: CN 2-12 grossly intact, no focal neurologic deficit Psych: pleasant and appropriate mood and affect. Test 11/20/16 23:20 11/21/16 03:45 11/22/16 03:20 11/22/16 10:58 Band Neutrophils % 0% (1-5) Troponin T 0.010ug/L (0.0-0.011) Urine Color Dark yellow (YELLOW) Urine Appearance Clear (CLEAR,HAZY) Urine pH 5.0 (5.0-8.0) Urine Specific Constantia 1.030 (1.003-1.035) Urine Protein Negativemg/dL (NEG,TRACE) Urine Glucose (UA) Negativemg/dL (NEGATIVE) Urine Ketones 15mg/dL (NEGATIVE) Urine Occult Blood Negative (NEGATIVE) Urine Nitrite Negative (NEGATIVE) Urine Bilirubin Negative (NEGATIVE) Urine Urobilinogen Normalmg/dL (NORMAL) Urine Leukocyte Esterase Negative (NEGATIVE) Urine RBC 0-2/hpf (0-2) Urine WBC 0-5/hpf (0-5) Urine Epithelial Cells Few/hpf (NONE-MOD) Urine Crystals None seen (NONE SEEN) Urine Bacteria Few/hpf (NONE-FEW) Urine Hyaline Casts Occasional/lpf (NONE) Urine Granular Casts Rare (NONE SEEN) Urine Waxy Casts None seen (NONE SEEN) Urine Red Blood Cell Casts None seen (NONE SEEN) Urine White Blood Cell Casts None seen (NONE SEEN) Urine Mucus Present (None Seen) Urine Trichomonas None seen (NONE SEEN) Urine Yeast None (NONE SEEN) Urinalysis Comment None Urine Culture Reflexed Not indicated White Blood Count 8.3th/mm3 (3.8-10.1) Red Blood Count 2.91mil/mm3 (4.40-5.80) Mean Corpuscular Volume 90.7fL (81-100) Mean Corpuscular Hemoglobin 29.9pg (27.0-35.0) Mean Corpuscular Hemoglobin Concent 33.0% (32.0-37.0) Red Cell Distribution Width 15.8% (12.3-15.4) Platelet Count 188bil/L (150-400) Neutrophils (%) (Auto) 53.3% (40-74) Lymphocytes (%) (Auto) 34.7% (14-46) Monocytes (%) (Auto) 8.1% (4-12) Eosinophils (%) (Auto) 3.3% (0-5) Basophils (%) (Auto) 0.4% (0-3) Prothrombin Time 13.4sec (8.1-12.5) Prothromb Time International Ratio 1.25ratio Sodium Level 143mEq/L (134-144) Potassium Level 4.1mEq/L (3.5-5.2) Chloride Level 111mEq/L (97-108) Carbon Dioxide Level 23mmol/L (18-29) Blood Urea Nitrogen 8mg/dL (8-27) Creatinine 0.77mg/dL (0.76-1.27) Estimat Glomerular Filtration Rate 108mL/min (>59) Glucose Level 140mg/dL (60-99) Calcium Level 7.4mg/dL (8.5-10.1) Phosphorus Level 2.4mg/dL (2.5-4.9) Magnesium Level 1.9mg/dL (1.6-2.6) Total Bilirubin 0.3mg/dL (0.0-1.2) Aspartate Amino Transf (AST/SGOT) 33U/L (0-50) Alanine Aminotransferase (ALT/SGPT) 24U/L (0-44) Alkaline Phosphatase 41U/L (25-160) Total Protein 4.9g/dL (6.4-8.4) Albumin 2.7g/dL (3.4-5.0) Hemoglobin 9.9g/dL (13.8-17.2) Hematocrit 30.3% (41.0-50.0) Discharge Medications Discharge Medications Amlodipine (Amlodipine) 5 Mg Tablet 5 MG PO DAILY (Reported) Aspirin (Aspirin) 81 Mg Tablet 81 MG PO DAILY (Reported) Cholecalciferol (Vitamin D3) (Vitamin D3) 5,000 Unit Tablet 5,000 UNIT PO DAILY (Reported) Cyanocobalamin (Vitamin B-12) (Vitamin B-12) 5,000 Mcg Tab.subl 5,000 MCG SL DAILY (Reported) Duloxetine (Duloxetine) 60 Mg Capsule.dr 60 MG PO DAILY (Reported) Gabapentin (Gabapentin) 800 Mg Tablet 800 MG PO TID (Reported) Lisinopril (Lisinopril) 10 Mg Tablet 10 MG PO DAILY (Reported) Metformin (Glucophage) 1,000 Mg Tablet 1,000 MG PO BID (Reported) Mirtazapine (Mirtazapine) 15 Mg Tablet 15 MG PO HS (Reported) Multivitamin (Multivitamins) 1 Each Capsule 1 EACH PO DAILY (Reported) Simvastatin (Simvastatin) 40 Mg Tablet 40 MG PO HS (Reported) As needed Calcium Carbonate (Tums) 500 Mg Tab.chew 300 MG PO PRN PRN PRN For Pain ( Reported) Docusate Sodium (Docusate Sodium) 250 Mg Capsule 100 MG PO BID PRN PRN For Constipation (Reported) Additional med instructions Do not take your Aspirin for another 10 days, resume on 12/02/16 Followup Plan Disposition: Home Follow-up plan Follow up with your primary care provider Dr. Borrero within 2 weeks. Discharge Diet: Diabetic Discharge Activity: Limited until seen by PCP (Balance rest and activity, try not to overextert yourself.) Patient Instructions Call your primary care provider or return to the hospital if you have any further bleeding from your rectum. Follow-up Provider: Hayden Borrero MD Follow-up with PCP in: 2 weeks Time spent Planning and coordination of discharge greater than 35 minutes. Attending Statement The patient was seen and examined together with Dr. Aguilar on 11/22/16 and I have added additional information to the note above. copies to: Hayden Borrero MD, David E DO Nov 22, 2016 16:43 Marisa Ortiz DO Nov 22, 2016 19:02
== END 2016-11-22 13:18 | disposition home or self-care (01) ==
LOC: SED 22:13 → INTOOBSV 11-21 01:16 → CCU 11-21 01:16 → PCC 11-21 19:00
PROVIDERS: ADMIT Internal Medicine; ATTEND Internal Medicine
DX: K28.4 Chronic or unspecified gastrojejunal ulcer with hemorrhage (principal); I95.1 Orthostatic hypotension; T81.59 Other complications of foreign body accidentally left in body following procedure; E11.9 Type 2 diabetes mellitus without complications; Z79.84 Long term (current) use of oral hypoglycemic drugs; I10 Essential (primary) hypertension; E78.5 Hyperlipidemia, unspecified; Z79.82 Long term (current) use of aspirin; Z86.010 Personal history of colon polyps
CPT/HCPCS: 36415; 45382; 80053; 81000; 83735; 84100; 84484; 85014; 85018; 85025; 85610; 86850; 86922; 87507; 87641; 93005; 96361; 96374; 99291; 99292; J0131; J0171; J1815; J2370; J2405; J7030